=== PATIENT | male | born 1980 | race African-American/Black ===

== ENCOUNTER 2023-07-04 11:48 | Emergency (ER) | payer OTHER, SELFPAY ==
[2023-07-04 12:05] VITALS: BP 121/83; PULSE 83; RESP 16; TEMP 36.8; O2SAT 99
--- NOTE | 2023-07-04 12:13 | ED.EYEPROB ---
HPI - Eye Problem General Chief complaint: Eye Problems Stated complaint: right eye discharge Time Seen by Provider: 07/04/23 12:13 Source: patient Mode of arrival: ambulatory Limitations: no limitations History of Present Illness HPI Narrative: 43-year-old male presents for complaint of Right eye crusted shut this morning. endorses Sinus congestion and drainage. denies injury or foreign body to the eye. Denies Redness, vision changes, photophobia or drainage throughout the day. no treatment prior to arrival. Denies sick contacts. chief complaint: eye pain Related Data Allergies Allergy/AdvReac Type Severity Reaction Status Date / Time No Known Allergies Allergy Verified 07/04/23 12:23 Review of Systems Review of Systems: CONSTITUTIONAL: Denies body aches, fever, chills EYES:Endorses Right eye crusted shut. Denies swelling, redness, pain, FB sensation, photophobia, visual changes ENT: reports rhinorrhea, congestion, denies sore throat, or otalgia. CARDIOVASCULAR: Denies chest pain, palpitations RESPIRATORY: Denies cough or dyspnea. GASTROINTESTINAL: Denies abdominal pain, nausea, vomiting, or diarrhea. SKIN: Denies rash, itching, or wounds. MUSCULOSKELETAL: Denies back pain, joint pain, or myalgia. NEUROLOGIC: Denies headache, numbness, tingling, or weakness. All systems reviewed & are unremarkable except as noted in HPI and below PMFSH Past Medical History Medical History (Updated 07/04/23 @ 12:37 by Syeda Merritt APRN) Hypertension Surgical History Surgical History (Updated 07/04/23 @ 12:38 by Syeda Merritt APRN) H/O toe surgery Comments At time of signature, I have reviewed and agree with nursing past medical, surgical, social and family history unless otherwise noted. Please see nursing chart for further information. There is no relevant family history pertinent to the presenting complaint Exam Narrative: GENERAL: Well-appearing HEAD: Normocephalic, atraumatic. EYES: mild right conjunctival injection, scant amount of crust to lashes. No eye lid swelling/redness. PERRLA EOMI. Lid eversion shows no foreign body ENT: Mucous membranes pink and moist. No rhinorrhea. TMs normal bilaterally. Throat normal. Uvula midline. CHEST: Clear to auscultation. HEART: Regular rate and rhythm. ABDOMEN: Soft, nontender, nondistended SKIN: Warm, dry, no rash. Normal skin turgor. NEURO: No focal deficits. Alert and oriented x3 PSYCH: Normal affect. Course Course Emergency Course: Patient is aware of diagnosis, understands and agrees to treatment plan. Anticipatory guidance given. Patient agrees to follow-up as directed and is aware of reasons to seek care at the emergency department. Portions of this record may have been created with voice recognition software Level of Care: Express Care Visit Vital Signs Vital signs: Vital Signs Temperature 98.2 F 07/04/23 12:05 Pulse Rate 83 07/04/23 12:05 Respiratory Rate 16 07/04/23 12:05 Blood Pressure 121/83 07/04/23 12:05 Pulse Oximetry 99 07/04/23 12:05 Oxygen Delivery Room Air 07/04/23 12:05 Temperature 98.2 F 07/04/23 12:05 Pulse Rate 83 07/04/23 12:05 Respiratory Rate 16 07/04/23 12:05 Blood Pressure 121/83 07/04/23 12:05 Pulse Oximetry 99 07/04/23 12:05 Oxygen Delivery Room Air 07/04/23 12:05 MDM - Eye Problem MDM Narrative Medical decision making narrative: Discussed physical exam findings. Advised supportive measures and signs/symptoms to go to the ER. Pt is appropriate for outpt treatment and f/u. Differential Diagnosis Differential diagnosis: Likely corneal abrasion, conjunctivitis, acute iritis, periorbital cellulitis, subconjunctival hemorrhage, corneal ulcer and other (URI, viral infection, allergic rhinitis) Discharge Plan Discharge Clinical Impression: Conjunctivitis Patient Disposition: Home, Self-Care Condition: Stable Instructions:
== END 2023-07-04 12:31 | disposition home or self-care (01) ==
PROVIDERS: Emergency Provider Nurse Practitioner Family; PCP Internal Medicine
DX: H10.9 Unspecified conjunctivitis (principal); I10 Essential (primary) hypertension
CPT/HCPCS: 99213; G0463